=== PATIENT | female | born 1985 | race Two or more races ===

== ENCOUNTER 2017-07-07 09:25 | Emergency (ER) | payer OTHER ==
[2017-07-07 09:38] VITALS: BP 120/73; PULSE 98; TEMP 99; BMI 23.8
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
[2017-07-07] MEDS ORDERED: IBUPROFEN 600 MG TABLET (FP) PO ONE ×2 (10:40→10:44)
== END 2017-07-07 11:20 | disposition home or self-care (01) ==
LOC: JERFT 09:25
DX: M79.1 Myalgia (principal); J45.909 Unspecified asthma, uncomplicated
CPT/HCPCS: 99281-25

== ENCOUNTER 2019-04-11 19:31 | Emergency (ER) | payer BC ==
[2019-04-11 19:40] VITALS: BMI 22.8
--- NOTE | 2019-04-11 19:45 | PDOC ---
Rapid Medical Evaluation Chief Complaint: Pain, Acute Time Seen by Provider: 04/11/19 19:40 Medical Evaluation: Allergies Allergy/AdvReac Type Severity Reaction Status Date / Time No Known Allergies Allergy Verified 07/07/17 09:35 Vital Signs Temp Pulse Resp BP Pulse Ox 100.5 F H 114 H 18 112/72 98 04/11/19 19:38 04/11/19 19:38 04/11/19 19:38 04/11/19 19:38 04/11/19 19:38 04/11/19 19:43 I have performed a brief in-person evaluation of this patient. The patient presents with a chief complaint of: left flank pain x 3 days, C/O dysuria Pertinent physical exam findings: pale, + CVAT I have ordered the following: UA/Ucg/Ucx The patient will proceed to the ED for further evaluation. Discharge Disposition - Diagnosis Flank pain - Referrals - Patient Instructions - Post Discharge Activity
--- NOTE | 2019-04-11 22:33 | PDOC ---
History of Present Illness - General Chief Complaint: Pain, Acute Stated Complaint: FEVER Time Seen by Provider: 04/11/19 19:40 - History of Present Illness Initial Comments: Quaina Beck is an otherwise healthy 33yo woman who presents with 3 days of left flank pain, rigors, subjective fever as well as one week of dysuria and frequency. She states that the pain has been present in the left side/flank and has been worsening over time. Tonight, it was a 10/10 but improved with ibuprofen that she took at home at about 7pm. The pain does not radiate. She is unable to describe the quality. Ms Beck reports that she has never had anything similar in the past. She denies any nausea, vomiting, change in bowel habits, or abdominal pain. She did not check her temperature at home but reports feeling feverish and having shivering over the past few days. Past History - Past Medical History Allergies/Adverse Reactions: Allergies Allergy/AdvReac Type Severity Reaction Status Date / Time No Known Allergies Allergy Verified 07/07/17 09:35 Home Medications: Ambulatory Orders Naproxen [Naprosyn -] 500 mg PO BID #14 tablet 07/07/17 Nitrofurantoin Macrocrystal [Nitrofurantoin] 100 mg PO BID #10 capsule 04/12/19 Anemia: No Asthma: No Cancer: No COPD: No Dementia: No Diabetes: No Disorders: No HTN: No Liver Disease: No Thyroid Disease: No - Immunization History Immunization Up to Date: Yes - Suicide/Smoking/Psychosocial Hx Smoking Status: No Smoking History: Never smoked Have you smoked in the past 12 months: No Number of Cigarettes Smoked Daily: 0 Hx Alcohol Use: No Drug/Substance Use Hx: No Substance Use Type: None Review of Systems - Review of Systems Comments:: General: + fevers, + chills, no weight or appetite change, no malaise HEENT: No changes in vision, no changes in hearing, no congestion, no sore throat CV: No chest pain, no palpitations, no LE edema Pulm: No SOB, no cough, no wheezing GI: No nausea or vomiting, no change in bowel habits, no melena : See HPI Musc: No back pain, no joint swelling, no recent injury Skin: No rash, no lesions, no erythema Endo: No excessive thirst, no heat/cold intolerance Heme: No unusual bruising or bleeding, no swollen glands Neuro: No syncope, no numbness/tingling, no focal weakness Vasc: No claudication Psych: No recent change in mood, no SI or HI *Physical Exam - Vital Signs Last Vital Signs Temp Pulse Resp BP Pulse Ox 100.5 F H 114 H 18 112/72 98 04/11/19 19:38 04/11/19 19:38 04/11/19 19:38 04/11/19 19:38 04/11/19 19:38 - Physical Exam Comments: General: Uncomfortable but in no acute distress HEENT: PERRL, EOMI, MMM, voice normal, normal neck ROM Cards: RRR, no murmur appreciated Pulm: Comfortable on room air, clear to auscultation bilaterally Abd: Soft, nontender, nondistended : L CVA tenderness Ext: Atraumatic. No LE edema. ROM intact Vasc: Extremities WWP Skin: Normal color, no rashes or lesions Neuro: A&Ox3, CN grossly intact, normal speech, motor/sensory grossly intact and symmetric Psych: Mood appropriate to situation ED Treatment Course - LABORATORY CBC & Chemistry Diagram: 04/11/19 23:55 04/11/19 23:55 Medical Decision Making - Medical Decision Making 04/11/19 22:32 Quiana Beck is an otherwise healthy 33yo woman who presents with 3 days of left flank pain, rigors, subjective fever as well as one week of dysuria and frequency. She was noted to be febrile on arrival to the ED despite taking ibuprofen ~2hrs prior to arrival. - Flank pain, fever, and dysuria suggest pyelonephritis - CBC, CMP, UA, UCx, u preg for evaluation - Urine sent in E, results pending - IVF, acetaminophen for pain and fever 04/12/19 00:33 - UA positive - Labs pending 04/12/19 00:52 - Labs reivweed. Notable for leukocytosis to 12.8 - UA w/ 2+ blood, 1+ leuk esterase, 15 WBC, 362 bacteria - CT ordered to evaluate for possible stone 04/12/19 02:49 - CT completed. Indicates recently past left stone (caliectasis) but no stone in ureter or bladder. Small stone in right kidney. No other concerning findings on CT - Updated pt. Will give initial dose of macrobid here, d/c with prescription for home and urology follow up. Discussed home care and return precautions at length. Discussed with Dr Tonny Kwon PGY2 *DC/Admit/Observation/Transfer Diagnosis at time of Disposition: Flank pain, Kidney stone on left side UTI (urinary tract infection) Qualifiers: Urinary tract infection type: site unspecified Hematuria presence: with hematuria Qualified Code(s): N39.0 - Urinary tract infection, site not specified - Discharge Dispostion Disposition: HOME Condition at time of disposition: Stable Decision to Admit order: No - Prescriptions Prescriptions: Nitrofurantoin Macrocrystal [Nitrofurantoin] 100 mg PO BID #10 capsule - Referrals Referrals: Bigg Roman MD [Staff Physician] - - Patient Instructions Printed Discharge Instructions: DI for Urinary Tract Infection (UTI) Additional Instructions: Discharge Instructions: You were seen in the emergency department for abdominal pain, and you were found to have a kidney stone that already passed on the left as well as a very small stone in the right kidney. You had a CT scan to confirm this. You were also found to have a urinary tract infection, and you have been prescribed an antibiotic. Home Care: - You have been prescribed an antibiotic to take at home called nitrofurantoin. This should be taken twice daily for 5 days. You may start in the afternoon or evening tomorrow as you received a dose in the ED. - You may use over the counter pain medications such as ibuprofen (Motrin, Advil ) 600mg every 6 hours as needed for pain. If you have continued pain, you may alternate this medication with acetaminophen (Tylenol) 650-1000mg. - Make sure you are drinking plenty of fluids to help pass the kidney stone on the right Follow Up: - You have been referred to a urologist for follow up, Dr Roman. You should make an appointment within the next week, especially if your symptoms do not resolve over the next few days. - Seek immediate medical care if you have worsening of your symptoms, you do not pass the stone within 3-4 days, you stop making urine entirely, you have noticeable blood in your urine, you develop fevers to 101F, or you have any medical emergency. - Post Discharge Activity
[2019-04-11 22:43] LABS: EPI CELLS 3.6 /HPF (0-5/HPF); HYALINE CASTS 0 /lpf (0-8); PH,URINE 5.5 (5.0-8.0); URINE APPEARANCE CLEAR; URINE BACTERIA 362.5 /hpf (NEGATIVE); URINE BILIRUBIN NEGATIVE (NEGATIVE); URINE COLOR YELLOW; URINE GLUCOSE (UA) NEGATIVE (NEGATIVE); URINE KETONE NEGATIVE (NEGATIVE); URINE LEUK ESTERASE 1+ (NEGATIVE); URINE NITRITE NEGATIVE (NEGATIVE); URINE PROTEIN NEGATIVE (NEGATIVE); URINE RBC 8 /hpf (0-4); URINE UROBILINOGEN 0.2 mg/dL (0.2-1.0); URINE WBC 15 /hpf (0-5)
[2019-04-11] MEDS ORDERED: ACETAMINOPHEN INJECTION 100 ML IVPB ONE (23:56)
[2019-04-12 00:17] LABS: BASO % 0.3 % (0-2.0); EOS % 0.1 % (0-4.5); HEMATOCRIT 39.5 % (32.4-45.2); HEMOGLOBIN 12.8 GM/dL (10.7-15.3); LYMPH % 7.5 % (8-40); MCH 27.3 pg (25.7-33.7); MCHC 32.5 g/dl (32.0-36.0); MEAN PLT VOLUME 8.8 fl (7.5-11.1); MONO % 8.1 % (3.8-10.2); PLATELET COUNT 183 K/MM3 (134-434); WHITE BLOOD COUNT 12.8 K/mm3 (4.0-10.0)
[2019-04-12] MEDS ORDERED: SODIUM CHLORIDE 0.9% 500 ML INFUS.BAG IV ONE (00:33)
[2019-04-12 00:42] LABS: ALBUMIN 3.6 g/dl (3.4-5.0); BILIRUBIN,TOTAL 0.4 mg/dL (0.2-1); BLOOD UREA NITROGEN 8.5 mg/dL (7-18); CALCIUM 8.4 mg/dL (8.5-10.1); POTASSIUM 4.2 mmol/L (3.5-5.1); TOT PROT 7.2 g/dl (6.4-8.2)
[2019-04-12] MEDS ORDERED: ACETAMINOPHEN 1000 MG/100 ML VIAL (NON FORMULARY) IVPB ONE (01:22)
[2019-04-12 03:13] VITALS: TEMP 98.2
[2019-04-12] MEDS ORDERED: NITROFURANTOIN MACROCRYSTAL 50 MG CAPSULE (FP) PO SCH (03:15)
[2019-04-12] MEDS ORDERED: NITROFURANTOIN MACROCRYSTAL 50 MG CAPSULE (FP) ONE (03:24)
[2019-04-12 03:36] VITALS: BP 100/67; PULSE 90
== END 2019-04-12 03:36 | disposition home or self-care (01) ==
LOC: JER 19:31
PROC: 3E033NZ Introduction of Analgesics, Hypnotics, Sedatives into Peripheral Vein, Percutaneous Approach (ICD-10-PCS; principal; 2019-04-11)
PROC: 3E0337Z Introduction of Electrolytic and Water Balance Substance into Peripheral Vein, Percutaneous Approach (ICD-10-PCS; 2019-04-11)
DX: R10.32 Left lower quadrant pain (principal); N39.0 Urinary tract infection, site not specified; N20.0 Calculus of kidney
CPT/HCPCS: 36415; 74176-TC; 80053; 81003; 84703; 85025; 87086; 87186; 99283-25; J0131

== ENCOUNTER 2022-11-11 04:58 | Day surgery (SDC) | payer BC, OTHER ==
[2022-11-08 12:30] VITALS: BMI 21.4
[2022-11-11] MEDS ORDERED: BUPIVACAINE HCL/PF 0.5% (5MG/ML) 10 ML VIAL ONE (13:32)
[2022-11-11] MEDS ORDERED: MIDAZOLAM HCL 2 MG/2 ML SINGLE DOSE VIAL ONE (14:03)
[2022-11-11] MEDS ORDERED: PROPOFOL 20 ML ONE (14:03)
[2022-11-11] MEDS ORDERED: LIDOCAINE HCL/PF 2% SDV 5ML VIAL ONE (14:03)
[2022-11-11] MEDS ORDERED: DEXAMETHASONE SOD PHOSPHATE 4 MG/1 ML VIAL ONE (14:03)
[2022-11-11] MEDS ORDERED: ONDANSETRON 4 MG/2 ML VIAL ONE (14:03)
[2022-11-11] MEDS ORDERED: ROCURONIUM BROMIDE 50 MG/5 ML SYRINGE ONE (14:03)
[2022-11-11] MEDS ORDERED: ceFAZolin SODIUM 1 GM VIAL ONE (14:40)
[2022-11-11] MEDS ORDERED: GLYCOPYRROLATE 0.2 MG/1 ML VIAL ONE (15:10)
[2022-11-11] MEDS ORDERED: NEOSTIGMINE METHYLSULFATE 0.5 MG/1 ML - 10 ML MDV ONE (15:10)
[2022-11-11] MEDS ORDERED: BUPIVACAINE HCL/PF 0.5% (5 MG/ML) 30 ML VIAL IJ ONE (15:12)
[2022-11-11] MEDS ORDERED: IBUPROFEN 600 MG TABLET (FP) PO PRN (15:17)
[2022-11-11] MEDS ORDERED: IBUPROFEN 800 MG/8 ML IJ IVPB PRN (15:17)
[2022-11-11] MEDS ORDERED: oxyCODONE HCL 5 MG TABLET PO PRN (15:17)
[2022-11-11] MEDS ORDERED: ONDANSETRON 4 MG/2 ML VIAL IVPUSH PRN (15:17)
[2022-11-11] MEDS ORDERED: KETOROLAC TROMETHAMINE 30 MG/1 ML VIAL ONE (15:22)
[2022-11-11] MEDS ORDERED: ELECTROLYTE-148 SOLN 1,000 ML IV SCH (15:30)
[2022-11-11 16:43] VITALS: RESP 16
[2022-11-11] MEDS ORDERED: oxyCODONE HCL 5 MG TABLET PO ONE (16:46)
[2022-11-11 16:49] VITALS: BP 110/57; PULSE 79; TEMP 97.7
[2022-11-11] MEDS ORDERED: oxyCODONE HCL 5 MG TABLET ONE (16:51)
[2022-11-11 20:35] LABS: HEMATOCRIT 38.2 % (32.4-45.2); HEMOGLOBIN 12.6 GM/dL (10.7-15.3); MCH 27.7 pg (25.7-33.7); MEAN CELL VOLUME 84.1 fl (80-96); MEAN PLT VOLUME 8.7 fl (7.5-11.1); PLATELET COUNT 209 10^3/uL (134-434); RBC 4.54 M/mm3 (3.60-5.2); RDW 13.2 % (11.6-15.6); WHITE BLOOD COUNT 12.3 K/mm3 (4.0-10.0)
== END 2022-11-11 21:00 | disposition home or self-care (01) ==
LOC: JASU-SURG 04:58
PROVIDERS: ATTEND Obstetrics & Gynecology
PROC: 0UT74ZZ Resection of Bilateral Fallopian Tubes, Percutaneous Endoscopic Approach (ICD-10-PCS; principal; 2022-11-11 14:00)
DX: Z30.2 Encounter for sterilization (principal)
CPT/HCPCS: 36415; 81025; 85027; 88302-TC; 94760